=== PATIENT | female | born 1955 | race Caucasian/White ===

== ENCOUNTER 2018-06-16 17:33 | Outpatient (REF) | payer BC, SELFPAY ==
[2018-06-16 19:00] LABS: Microalb ug/mg Crea 80.2 ug/mg Cr
== END 2018-06-16 17:34 ==
LOC: NCHCN 17:33
PROVIDERS: PCP Internal Medicine; Visit Provider Internal Medicine
DX: E11.9 Type 2 diabetes mellitus without complications (principal)
CPT/HCPCS: 82043; 82570

== ENCOUNTER 2018-12-07 18:59 | Outpatient (REF) | payer BC, SELFPAY ==
[2018-12-07 21:40] LABS: ALT 50 U/L (12-78); AST 30 U/L (15-37); Albumin 4.1 g/dL (3.4-5.0); Alkaline Phosphatase 88 U/L (46-116); Anion Gap 12.8 mmol/L (3-11); BUN 52 mg/dL (7-18); Bilirubin, Total 0.3 mg/dL (0.2-1.0); CO2 22.2 mmol/L (21.0-32.0); CREATININE 1.19 mg/dL (0.55-1.02); Chloride 101 mmol/L (98-107); Estimated GFR 45.96 (mL/min/1.73m2); Glucose 173 mg/dL (70-100); LDL CHOLESTEROL 97 mg/dL (<100); Potassium 5.7 mmol/L (3.5-5.1); Sodium 136 mmol/L (136-145); TSH 1.93 uIU/mL (0.358-3.74); Total Protein 7.8 g/dL (6.4-8.2)
== END 2018-12-07 19:19 ==
LOC: NCHCN 18:59
PROVIDERS: PCP Internal Medicine; Visit Provider Internal Medicine
DX: K76.0 Fatty (change of) liver, not elsewhere classified (principal); M54.42 Lumbago with sciatica, left side; E11.9 Type 2 diabetes mellitus without complications; E66.9 Obesity, unspecified
CPT/HCPCS: 80053; 83721; 84443

== ENCOUNTER 2020-08-19 16:28 | Outpatient (REF) | payer BC, SELFPAY ==
[2020-08-19 20:11] LABS: ALT 77 U/L (14-59); AST 43 U/L (15-37); Albumin 4.2 g/dL (3.4-5.0); Alkaline Phosphatase 67 U/L (46-116); Anion Gap 13.9 mmol/L (3-11); BUN 42 mg/dL (7-18); Bilirubin, Total 0.4 mg/dL (0.2-1.0); CO2 21.1 mmol/L (21.0-32.0); CREATININE 1.02 mg/dL (0.55-1.02); Calcium 10.1 mg/dL (8.5-10.1); Chloride 101 mmol/L (98-107); Estimated GFR 54.56 (mL/min/1.73m2); Glucose 194 mg/dL (74-106); LDL CHOLESTEROL 97 mg/dL (<100); Sodium 136 mmol/L (136-145); TSH 2.25 uIU/mL (0.36-3.74); Total Protein 7.8 g/dL (6.4-8.2)
== END 2020-08-19 16:48 ==
LOC: NCHCN 16:28
PROVIDERS: PCP Internal Medicine; Visit Provider Internal Medicine
DX: E11.9 Type 2 diabetes mellitus without complications (principal); I10 Essential (primary) hypertension
CPT/HCPCS: 80053; 83721; 84443

== ENCOUNTER 2021-07-28 12:42 | Outpatient (REF) | payer BC, SELFPAY ==
--- OUTSIDE RECORDS SUMMARY | 2021-07-28 12:48 | XMS_ITS ---
:1955 Author Care Team Providers Name Role Phone SMITA JOHNS MD Primary Care Provider [phone] Allergies Code Code System Name Reaction Severity Status Onset 615960 RxNorm Bactrim Rash ? Active ? 24142 RxNorm Losartan ? ? Active ? Notes: Seasonal allergies Medications Name Status Start Date Stop Date ? ? atorvastatin 20 mg tablet Active ? Not av ailable TAKE ONE TABLET BY MOUTH AT BEDTIME Bacteriostatic Water(Parabens) injection solution Completed 07/28/2012 10/14/2012 10 Milliliter(s): Weekly BD Ultra-Fine Original Pen Needle Active ? Not available 29 gauge x 1/2 cephalexin 500 mg capsule Active ? Not av ailable TAKE FOUR CAPSULES BY MOUTH 1 HOUR PRIOR TO DENTAL PROCEDURE Cleocin HCl 300 mg capsule Completed 08/24/200808/31 1 (one) Capsule: twice daily Fluarix Quad 1787-7080 (PF) 60 mcg Active ? Not available (15 mcg x 4)/0.5 mL IM syringe fluticasone propionate 50 Active ? Not av ailable mcg/actuation nasal spray,suspension Fluzone Quad 8606-9134 (PF) 60 mcg Completed ? 09/19/2020 (15 mcg x 4)/0.5 mL IM syringe heparin, porcine (PF) 1,000 unit/mL injection solution Completed 07/28/2012 10/14/2012 5 Milliliter(s): Weekly lansoprazole 15 mg capsule,delayed release Active ? Not available TAKE ONE CAPSULE BY MOUTH EVERY DAY lidocaine (PF) 10 mg/mL (1 %) injection solution Completed 07/28/2012 10/14/2012 200 Milligram(s): Weekly lisinopril 40 mg tablet Active ? Not avai lable TAKE ONE TABLET BY MOUTH EVERY DAY metformin 850 mg tablet Active ? Not avai lable TAKE ONE TABLET BY MOUTH TWICE A DAY methylprednisolone sodium succinate 125 mg solution for inje ction Completed 07/28/2012 10/14/2012 125 Milligram(s): Weekly nitrofurantoin monohydrate/macrocrystals 100 mg capsule Active ? Not available TAKE ONE CAPSULE BY MOUTH EVERY 12 HOURS FOR 3 DAYS oxybutynin chloride ER 5 mg tablet,extended release 24 hr Comple renee 06/22/2012 07/08/2012 2 (two) Tablet ER 24HR: daily sodium bicarbonate 10 mEq/10 mL (8.4 %) intravenous syringe Completed 07/28/2012 10/14/2012 20 Milliequivalents: Weekly Trulicity 0.75 mg/0.5 mL subcutaneous pen injector Active ? Not available INJECT 0.75 MG SUBCUTANEOUSLY WEEKLY Trulicity 1.5 mg/0.5 mL subcutaneous pen injector Active ? Not available INJECT 1.5MG SUBCUTANEOUSLY WEEKLY Victoza 3-Zach 0.6 mg/0.1 mL (18 Active ? Not available mg/3 mL) subcutaneous pen injector Vistaril 50 mg capsule Completed 07/08/2012 2 1 (one) Capsule: at bedtime zolpidem 5 mg tablet Active ? Not availab le TAKE 1 TABLET BY MOUTH AT BEDTIME NEEDED Problems Name Status Onset Date Source ? Diabetes Mellitus Active 06/15/2020 ? Hypertensive Disorder Active 06/15/2020 ? Chronic Interstitial Cystitis Active ? Hi story Gynecologic Examination Unknown ? History Bladder Muscle Dysfunction - Active ? His tory Overactive Injury of Right Lower Leg Active ? Histor y Pain in Left Knee Active ? History Procedures Date Name Performed by ? 05/07/2014 Total Replacement of Hip Information not available Notes: Bilateral by Dr. Ingram 08/22/1998 Total Hysterectomy Information not veena pineda Notes: abdominal 04/25/2018 MAMMO, Screening, Tomosynthesis, [facility] (Internal) Bilateral [address] [place] [id number] ([address]) 04/17/2019 MAMMO, Screening, Tomosynthesis, [facility] (Internal) Bilateral [address] [place] [id number] ([address]) 07/03/2020 MAMMO, Screening, Tomosynthesis, [facility] (Internal) Bilateral [address] [place] [id number] (Work [address]) Results Lab Results Date Name Specimen Result Interpretation Description Value Range Status Address ? 10/05/2017 Venipuncture BLD ? Venpn* ? ? Final [facility] L [facility] (Internal) : [address] 10/05/2017 Lipid Panel, S ? Chol 150 50-2 Final [facility] Serum mg/dL 00 Hospital L ab mg/d (Internal) : L [address] ? ? S High Trig 206 10-1 Final [facility] try mg/dL 50 Hospital L ab mg/d (Internal) : L [address] ? ? S Low Hdl 35 40-6 Final [facility] try mg/dL 0 Hospital L ab mg/d (Internal) : L [address] ? ? S ? Ldl 74 0-13 Final [facility] try mg/dL 0 Hospital L ab mg/d (Internal) : L [address] 10/05/2017 BMP, Serum or S High g/r 244 74-1 Final [facility] Plasma mg/dL 06 Hospital L ab mg/d (Internal) : L [address] ? ? S High Bun 36 7-17 Final [facility] try mg/dL mg/d Hospital L ab L (Internal) : [address] ? ? S ? Crea 0.80 0.52 Final [facility] try mg/dL -1.0 Hospital L ab 4 (Internal) : mg/d [address], L [place] ? ? S ? Ca 10.2 8.4- Final [facility] try mg/dL 10.2 Hospital L ab mg/d (Internal) : L [address] ? ? S Low Na 136 137- Final [facility] try mmol/L 145 Hospital L ab mmol (Internal) : /L [address] ? ? S High K 5.2 3.5- Final [facility] try mmol/L 5.1 Hospital L ab mmol (Internal) : /L [address] ? ? S ? Cl 101 98-1 Final [facility] try mmol/L 07 Hospital L ab mmol (Internal) : /L [address] ? ? S Low Tco2 18.0 22.0 Final [facility] try mmol/L -30. Hospital L ab 0 (Internal) : mmol [address], /L [place] 10/05/2017 ALT (Alanine S High Alt 89 U/L 9-52 Final [facility] Aminotransferas (Sgpt) U/L H ospital Lab e), Serum or (Int ernal): Plasma [address] [place] 10/05/2017 CK (Creatine S ? Cpk 118 30-1 Final [facility] Kinase), Total, U/L 35 H ospital Lab Serum U/L (Internal) : [address] [place] 10/05/2017 TSH, Serum or S ? Tsh 2.64 0.47 Final [facility] Plasma u[IU]/ -4.6 Hospital L ab mL 8 (Internal) : u[IU [address], ]/mL [place] Past Encounters 07/03/2020 Gynecologic Examination; Screening Mammo graphy Alvarez Asif MD: [address] [place] [id number], Ph. Social History Tobacco Smoking Status Former Smoker Vaccine List Vaccine Type COVID-19, mRNA, LNP-S, PF, 100 mcg/0.5 m L dose 01/01/2021?100 mcg 01/29/2021?100 mcg Plan of Care Reminders Provider Appointments None ? ? recorded. Lab None ? ? recorded. Referral None ? ? recorded. Procedures None ? ? recorded. Surgeries None ? ? recorded. Imaging None ? ? recorded. Vitals 07/03/2020 03:20PM HME 20 Weight Blood Pressure 98.43 kg 126/74 mm[Hg] 05/17/2017 Height Weight 160.02 cm 95.25 kg 04/16/2016 Height Weight 160.02 cm 97.07 kg 04/16/2016 Blood Pressure 122/74 mm[Hg] 04/09/2016 Blood Pressure 148/84 mm[Hg] 04/09/2016 Height Weight 160.02 cm 95.71 kg 04/15/2015 Blood Pressure 122/84 mm[Hg] 04/15/2015 Height Weight 157.48 cm 98.88 kg 01/31/2014 Blood Pressure 134/70 mm[Hg] 01/31/2014 Height Weight 157.48 cm 93.44 kg 01/25/2013 Blood Pressure 122/78 mm[Hg] 01/25/2013 Height Weight 157.48 cm 98.43 kg 10/14/2012 Height Weight 157.48 cm 96.62 kg 10/14/2012 Blood Pressure 154/90 mm[Hg] 07/08/2012 Blood Pressure 128/66 mm[Hg] 07/08/2012 Height Weight 157.48 cm 96.62 kg 06/17/2012 Blood Pressure 164/80 mm[Hg] 06/17/2012 Height Weight 157.48 cm 95.25 kg 01/25/2012 Blood Pressure 122/70 mm[Hg] 01/25/2012 Height Weight 157.48 cm 95.25 kg 01/22/2011 Height Weight 157.48 cm 94.8 kg 01/22/2011 Blood Pressure 118/70 mm[Hg] 12/18/2010 Height Weight 157.48 cm 94.8 kg 12/18/2010 Blood Pressure 154/80 mm[Hg] 01/10/2010 Height Weight 157.48 cm 97.07 kg 01/10/2010 Blood Pressure 128/60 mm[Hg] 08/24/2008 Blood Pressure 164/100 mm[Hg] 08/24/2008 Height Weight 157.48 cm 91.63 kg
[2021-07-30 10:52] LABS: COVID-19 RT-PCR UVMMC Result Negative (Negative)
== END 2021-07-28 12:43 | disposition home or self-care (01) ==
LOC: NCHCN 12:42
PROVIDERS: PCP Internal Medicine; Visit Provider Nurse Practitioner Family
DX: Z20.822 Contact with and (suspected) exposure to COVID-19 (principal); J31.0 Chronic rhinitis
CPT/HCPCS: U0003

== ENCOUNTER 2021-08-18 15:08 | Outpatient (REF) | payer BC, SELFPAY ==
[2021-08-20 12:47] LABS: COVID-19 RT-PCR UVMMC Result Negative (Negative)
== END 2021-08-18 15:09 | disposition home or self-care (01) ==
LOC: NCHCN 15:08
PROVIDERS: PCP Internal Medicine; Visit Provider Internal Medicine
DX: Z20.822 Contact with and (suspected) exposure to COVID-19 (principal); J06.9 Acute upper respiratory infection, unspecified
CPT/HCPCS: U0003

== ENCOUNTER 2022-03-20 15:36 | Outpatient (REF) | payer BC, SELFPAY ==
[2022-03-20 19:11] LABS: COMMENT (LAB VIEW ONLY) 67.84 mg/dL
[2022-03-20 19:23] LABS: Microalb ug/mg Crea 125.1 ug/mg Cr
[2022-03-20 19:43] LABS: ALT 76 U/L (14-59); Anion Gap 13.7 mmol/L (3-11); BUN 29 mg/dL (7-18); CO2 24.3 mmol/L (21.0-32.0); CREATININE 0.9 mg/dL (0.55-1.02); Calcium 9.7 mg/dL (8.5-10.1); Chloride 102 mmol/L (98-107); Cholesterol 146 mg/dL (<200); Glucose 121 mg/dL (74-106); HDL Cholesterol 38 mg/dL (40-60); Potassium 4.8 mmol/L (3.5-5.1); Sodium 140 mmol/L (136-145); TSH 1.32 uIU/mL (0.36-3.74)
[2022-03-20 19:55] LABS: Calculated LDL 83 mg/dL (<100); Triglyceride 127 mg/dL (<150)
== END 2022-03-20 15:37 | disposition home or self-care (01) ==
LOC: NCHCN 15:36
PROVIDERS: PCP Internal Medicine; Visit Provider Internal Medicine
DX: E11.9 Type 2 diabetes mellitus without complications (principal); Z00.00 Encounter for general adult medical examination without abnormal findings; E04.2 Nontoxic multinodular goiter; I10 Essential (primary) hypertension
CPT/HCPCS: 80048; 80061; 82043; 82570; 84443; 84460

== ENCOUNTER 2023-04-29 15:30 | Outpatient (REF) | payer BC, SELFPAY ==
[2023-04-29 20:07] LABS: ALT 65 U/L (14-59); AST 53 U/L (15-37); Albumin 4.3 g/dL (3.4-5.0); Alkaline Phosphatase 76 U/L (46-116); Anion Gap 15.3 mmol/L (3-11); BUN 36 mg/dL (7-18); Bilirubin, Total 0.4 mg/dL (0.2-1.0); CO2 20.7 mmol/L (21.0-32.0); Calcium 10.1 mg/dL (8.5-10.1); Calculated LDL 67 mg/dL (<100); Chloride 103 mmol/L (98-107); Cholesterol 126 mg/dL (<200); Estimated GFR 62.13 (mL/min/1.73m2); Glucose 154 mg/dL (74-106); HDL Cholesterol 34 mg/dL (40-60); Potassium 4.8 mmol/L (3.5-5.1); Sodium 139 mmol/L (136-145); Total Protein 8.3 g/dL (6.4-8.2); Triglyceride 125 mg/dL (<150)
[2023-04-29 20:27] LABS: Hemoglobin A1C 6.6 % (<5.7)
== END 2023-04-29 15:31 | disposition home or self-care (01) ==
LOC: NCHCN 15:30
PROVIDERS: PCP Internal Medicine; Visit Provider Internal Medicine
DX: E11.9 Type 2 diabetes mellitus without complications (principal); I10 Essential (primary) hypertension; K76.0 Fatty (change of) liver, not elsewhere classified; E78.5 Hyperlipidemia, unspecified
CPT/HCPCS: 80053; 80061; 83036

== ENCOUNTER 2023-05-04 18:34 | Outpatient (REF) | payer BC, SELFPAY ==
[2023-05-06 14:18] LABS: ANA Interpretation Positive (Negative); ANA Titer Pattern 1:320 Homogeneous
[2023-05-07 13:08] LABS: Smooth Muscle Ab Screen Negative (Negative)
[2023-05-07 18:16] LABS: Liver/Kidney Microsome Type 1 <5.0 U
== END 2023-05-04 18:35 | disposition home or self-care (01) ==
LOC: LBN 18:34
PROVIDERS: PCP Internal Medicine; Visit Provider Internal Medicine
DX: R74.01 Elevation of levels of liver transaminase levels (principal)
CPT/HCPCS: 86038; 86255

== ENCOUNTER 2024-06-06 15:45 | Outpatient (REF) | payer BC, SELFPAY ==
[2024-06-06 19:50] LABS: ALT 74 U/L (14-59); AST 74 U/L (15-37); Albumin 4.2 g/dL (3.4-5.0); Alkaline Phosphatase 73 U/L (46-116); Anion Gap 16.6 mmol/L (3-11); BUN 32 mg/dL (7-18); Bilirubin, Total 1.02 mg/dL (0.2-1.0); CO2 19.4 mmol/L (21.0-32.0); Calcium 9.9 mg/dL (8.5-10.1); Calculated LDL 75 mg/dL (<100); Chloride 101 mmol/L (98-107); Cholesterol 145 mg/dL (<200); Estimated GFR 61.75 (mL/min/1.73m2); Glucose 153 mg/dL (74-106); HDL Cholesterol 37 mg/dL (40-60); Potassium 4.8 mmol/L (3.5-5.1); Sodium 137 mmol/L (136-145); TSH 2.06 uIU/Ml (0.36-3.74); Total Protein 8.1 g/dL (6.4-8.2); Triglyceride 166 mg/dL (<150)
== END 2024-06-06 15:46 | disposition home or self-care (01) ==
LOC: NCHCN 15:45
PROVIDERS: PCP Internal Medicine; Visit Provider Internal Medicine
DX: E66.9 Obesity, unspecified (principal); E04.9 Nontoxic goiter, unspecified; I10 Essential (primary) hypertension
CPT/HCPCS: 80053; 80061; 84443

== ENCOUNTER 2025-05-23 13:25 | Outpatient (REF) | payer MEDICARE, SELFPAY ==
[2025-05-23 21:06] LABS: ALT 75 U/L (14-59); AST 73 U/L (15-37); Albumin 4.3 g/dL (3.4-5.0); Alkaline Phosphatase 88 U/L (46-116); Anion Gap 11.6 mmol/L (3-11); BUN 31 mg/dL (7-18); Bilirubin, Total 0.5 mg/dL (0.2-1.0); CO2 20.4 mmol/L (21.0-32.0); Calcium 9.8 mg/dL (8.5-10.1); Calculated LDL 78 mg/dL (<100); Chloride 103 mmol/L (98-107); Cholesterol 145 mg/dL (<200); Estimated GFR 69.64 (mL/min/1.73m2); Glucose 215 mg/dL (74-106); HDL Cholesterol 36 mg/dL (>or=50); Potassium 4.7 mmol/L (3.5-5.1); Sodium 135 mmol/L (136-145); Total Protein 8.2 g/dL (6.4-8.2); Triglyceride 157 mg/dL (<150)
[2025-05-23 21:09] LABS: Hemoglobin A1C 7.4 % (<5.7)
== END 2025-05-23 13:26 | disposition home or self-care (01) ==
LOC: NCHCN 13:25
PROVIDERS: PCP Internal Medicine; Visit Provider Internal Medicine
DX: E78.5 Hyperlipidemia, unspecified (principal); E11.9 Type 2 diabetes mellitus without complications; K76.0 Fatty (change of) liver, not elsewhere classified
CPT/HCPCS: 80053; 80061; 83036

== ENCOUNTER 2025-08-23 11:53 | Outpatient (REF) | payer MEDICARE, SELFPAY ==
[2025-08-23 16:38] LABS: TSH 0.99 uIU/mL (0.36-3.74); Vitamin B12 582 pg/mL (193-986)
== END 2025-08-23 11:54 | disposition home or self-care (01) ==
LOC: NCHCN 11:53
PROVIDERS: PCP Internal Medicine; Visit Provider Physician Assistant
DX: R41.3 Other amnesia (principal)
CPT/HCPCS: 82607; 84439; 84443